=== PATIENT | female | born 1945 | race Caucasian/White ===

== ENCOUNTER 2016-12-03 23:28 | Inpatient (IN) | payer OTHER, MEDICARE ==
[~2016-12-03] VITALS: Ht 167.6 cm; Wt 74.3 kg
[~2016-12-03 23:28] MED LIST: ALIGN4 MG PO; ALLOPURINOL300 MG PO; AMBIEN5 MG PO; ASPIR-LOW81 MG PO; CIPRO500 MG PO; CYMBALTA60 MG PO; DILTIAZEM 24HR240 MG PO; GLUCOPHAGE1000 MG PO; GLUCOPHAGE500 MG PO; LIVALO1 MG PO; LOSARTAN POTASS50 MG PO; MELATONIN1 MG PO; SYNTHROID100 MCG PO; VALACYCLOVIR500 MG PO
[2016-12-03 23:53] LABS: ANION GAP 24 MEQ/L (2-14); CHLORIDE 107 mEq/L (99-109); CREATININE 3.4 mg/dL (0.6-1.3); GLUCOSE 177 mg/dL (70-99); ISTAT DEVICE 359068; POTASSIUM > 6.0 mEq/L (3.7-5.4); SODIUM 133 mEq/L (136-147); UREA NITROGEN (BUN) 65 mg/dL (9-23)
[2016-12-04 00:14] LABS: HEMATOCRIT 39.3 % (36.0-46.0); MCHC 29.5 G/DL (30.0-36.0); MCV 88.1 FL (83-99); MEAN PLAT.VOLUME 9.4 uM^3 (9.5-12.4); PLATELET COUNT 334 K/uL (156-360); RBC DIS.WIDTH-CV 17.2 % (11.8-14.6); RBC DIS.WIDTH-SD 53.8 % (39-53); RED BLOOD COUNT 4.46 M/uL (3.80-5.20); WHITE BLOOD COUNT 26.5 K/uL (4.1-10.2)
[2016-12-04 00:23] LABS: AMYLASE 72 IU/L (1-118); CHLORIDE 102 mEq/L (99-109); SODIUM 136 mEq/L (136-147)
[2016-12-04 00:25] LABS: GLUCOSE 179 mg/dL (70-99); POTASSIUM 6.9 mEq/L (3.7-5.4)
[2016-12-04 00:26] LABS: ANION GAP 27 MEQ/L (2-14); INTER. NORMALIZED RATIO 1.2; PROTHROMBIN TIME 12.3 (9.2-11.2); PTT 28.9 (25-32)
[2016-12-04 00:28] LABS: SERUM ETHYL ALCOHOL < 10 mg/dL
[2016-12-04 00:29] LABS: GFR ESTIMATE (CALCULATED) 13 mL/min/; UREA NITROGEN (BUN) 62 mg/dL (9-23)
[2016-12-04 00:30] LABS: BASE EXCESS -21.3 mEq/L (-3 to +3); BICARBONATE 8.6 mEq/L (22-26); METHEMOGLOBIN 0.6 % (0-1.5); PCO2 34 mm Hg (35-45); PO2 194 mm Hg (80-100)
[2016-12-04 00:31] LABS: COMMENTS - BLOOD GASES C+; DEVICE VENTILATOR; FI02 50 %; MECHANICAL RATE 16 resp/min; MODE A/C; PEEP 8 CM/H20; SITE LR; TIDAL VOLUME 500 ML; TOTAL RESP RATE 16 resp/min; pH 7.01 (7.35-7.45)
[2016-12-04 00:32] LABS: LIPASE 51 U/L (1.0-51.0)
[2016-12-04 00:37] LABS: TROP-I INTERPRETATION NEGATIVE; TROPONIN-I < 0.01 ng/mL (0.0-0.30)
[2016-12-04 01:18] LABS: ADD MIUA? YES; BILIRUBIN NEGATIVE; BLOOD SMALL; COLOR YELLOW ((YELLOW)); GLUCOSE (STRIP) NEGATIVE; KETONES NEGATIVE; LEUKOCYTES TRACE; NITRITE NEGATIVE; PROTEIN (STRIP) 30; SPECIFIC GRAVITY 1.008 (1.000-1.030); UROBILINOGEN 0.2 MG/DL (0.2-1.0)
[2016-12-04 01:22] LABS: AMPHETAMINE NEGATIVE (500 ng/mL); BARBITURATES NEGATIVE (200 ng/mL); BENZODIAZEPINES NEGATIVE (150 ng/mL); COCAINE NEGATIVE (150 ng/mL); INTERNAL CONTROLS VALID? YES; METHADONE NEGATIVE (200 ng/mL); METHAMPHETAMINE NEGATIVE (500 ng/mL); OPIATES (MORPHINE) NEGATIVE (100 ng/mL); OXYCODONE NEGATIVE (100 ng/mL); PHENCYCLIDINE NEGATIVE (25 ng/mL); PROPOXYPHENE NEGATIVE (300 ng/mL); THC CANNABINOIDS NEGATIVE (50 ng/mL); TRICYCLIC ANTIDEPRESSANTS NEGATIVE (300 ng/mL)
[2016-12-04 01:26] VITALS: BP 82/54
[2016-12-04 01:33] LABS: ABS NEUTROPHIL COUNT 12.5; BAND NEUTROPHILS 1.7 % (0-8.0); BASOPHILS 0.9 %; EOSINOPHIL ABS CT 0.2; EOSINOPHILS 0.9 % (0-5.0); INSTRUMENT ABS NEUTROPHIL CT 13.1 K/uL; LYMPHOCYTES 47.4 % (15.0-45.0); PLAT.SUFFICIENCY ADEQUATE; SEG.NEUTROPHILS 45.6 % (46.0-76.0); SMUDGE CELLS 5.3
[2016-12-04 01:46] LABS: RED BLOOD CELLS 0-5 /HPF (0-5); WHITE BLOOD CELLS NONE SEEN /HPF (0-5)
[2016-12-04 01:47] LABS: BACTERIA 1+ /HPF; EPITHELIAL CELLS 1+ /HPF; MUCUS NONE SEEN /LPF; UCUL ADDED? NO
[2016-12-04 02:00] VITALS: BP 100/31
[2016-12-04 02:04] LABS: BASE EXCESS -21.4 mEq/L (-3 to +3); BICARBONATE 7.8 mEq/L (22-26); CARBOXY HGB 1.3 % (0-5); COMMENTS - BLOOD GASES C+; DEVICE VENTILATOR; FI02 30 %; METHEMOGLOBIN 1.7 % (0-1.5); PCO2 29 mm Hg (35-45); PO2 95 mm Hg (80-100); SITE A-LINE
[2016-12-04 02:05] LABS: MECHANICAL RATE 16 resp/min; MODE AC; PEEP 5 CM/H20; TIDAL VOLUME 500 ML; TOTAL RESP RATE 16 resp/min; pH 7.04 (7.35-7.45)
[2016-12-04 02:30] VITALS: BP 100/31
[2016-12-04 03:00] VITALS: BP 100/31
[2016-12-04 03:08] LABS: CHLORIDE 102 mEq/L (99-109)
[2016-12-04 03:10] LABS: GLUCOSE 326 mg/dL (70-99)
[2016-12-04 03:11] LABS: ANION GAP 29 MEQ/L (2-14); POTASSIUM 3.7 mEq/L (3.7-5.4); SODIUM 143 mEq/L (136-147)
[2016-12-04 03:12] LABS: TOTAL BILIRUBIN 1.2 mg/dL (0.0-1.0)
[2016-12-04 03:13] LABS: ALKALINE PHOSPHATASE 85 IU/L (3-129)
[2016-12-04 03:14] LABS: GFR ESTIMATE (CALCULATED) 14 mL/min/
[2016-12-04 03:14] LABS: METH RESISTANT S AUREUS PCR NEGATIVE (NEGATIVE)
[2016-12-04 03:15] LABS: UREA NITROGEN (BUN) 62 mg/dL (9-23)
[2016-12-04 03:20] LABS: PROBE CHECK PASS; SPECIMEN PROCESSING CONTROL PASS
[2016-12-04 05:54] LABS: BASE EXCESS -12.2 mEq/L (-3 to +3); BICARBONATE 11.9 mEq/L (22-26); CARBOXY HGB 1.2 % (0-5); COMMENTS - BLOOD GASES C+; DEVICE VENT; FI02 30 %; MECHANICAL RATE 25 resp/min; METHEMOGLOBIN 1.4 % (0-1.5); MODE A/C; PCO2 22 mm Hg (35-45); PEEP 5 CM/H20; PO2 62 mm Hg (80-100); SITE RR ALINE; TIDAL VOLUME 500 ML; TOTAL RESP RATE 25 resp/min; pH 7.34 (7.35-7.45)
[2016-12-04 06:40] LABS: BASOPHIL COUNT 0.1 K/uL (0-0.1); EOSINOPHIL (%) 0 % (0-5); IMMATURE GRANULOCYTE (%) 1.2 % (0.0-0.7); IMMATURE GRANULOCYTE COUNT 0.3 K/uL; INSTRUMENT ABS NEUTROPHIL CT 19.7 K/uL; LYMPHOCYTE COUNT 4.4 K/uL (1.0-2.8); MCH 26.2 PG (29.0-34.0); MCHC 31.3 G/DL (30.0-36.0); MONOCYTE (%) 7.5 % (3-12); NEUTROPHIL (%) 74.6 % (45-76); NEUTROPHIL COUNT 19.7 K/uL (1.8-6.4); RBC DIS.WIDTH-SD 51.4 % (39-53); RED BLOOD COUNT 3.59 M/uL (3.80-5.20); WHITE BLOOD COUNT 26.4 K/uL (4.1-10.2)
[2016-12-04 06:43] LABS: MCV 83.6 FL (83-99)
[2016-12-04 06:55] LABS: ALKALINE PHOSPHATASE 92 IU/L (3-129); ANION GAP 31 MEQ/L (2-14); CHLORIDE 97 MEQ/L (99-109); POTASSIUM 3.6 MEQ/L (3.7-5.4); SAMPLE HEMOLYSIS CHECK 0; SAMPLE ICTERIC CHECK 0; SAMPLE LIPEMIA CHECK 0; SODIUM 139 MEQ/L (136-147); TOTAL BILIRUBIN 1.5 MG/DL (0.0-1.0); UREA NITROGEN (BUN) 57 mg/dL (9-23)
[2016-12-04 06:57] LABS: GLUCOSE 471 mg/dL (70-99)
[2016-12-04 06:58] LABS: GFR ESTIMATE (CALCULATED) 17 mL/min/
[2016-12-04 07:47] LABS: MEAN PLAT.VOLUME 10.1 uM^3 (9.5-12.4); PLAT.SUFFICIENCY ADEQUATE
[2016-12-04 08:20] LABS: PLATELET COUNT 226 K/uL (156-360)
[2016-12-04 12:12] LABS: ANION GAP 19 MEQ/L (2-14); CHLORIDE 98 MEQ/L (99-109); POTASSIUM 3.7 MEQ/L (3.7-5.4); SAMPLE HEMOLYSIS CHECK 0; SAMPLE ICTERIC CHECK 0; SAMPLE LIPEMIA CHECK 0; SODIUM 140 MEQ/L (136-147)
[2016-12-04 12:17] LABS: GFR ESTIMATE (CALCULATED) 19 mL/min/; GLUCOSE 302 mg/dL (70-99); UREA NITROGEN (BUN) 52 mg/dL (9-23)
[2016-12-04] MEDS ORDERED: DILTIAZEM 24HR360 M1 PO (18:00)
[2016-12-04] MEDS ORDERED: LOSARTAN POTAS100 MG PO (18:01)
[2016-12-04] MEDS ORDERED: PANTOPRAZOLE SO40 MG PO (18:03)
[2016-12-04] MEDS ORDERED: ZYDELIG150 MG PO (18:03)
[2016-12-04] MEDS ORDERED: ELIQUIS2.5 MG PO (18:03)
[2016-12-04] MEDS ORDERED: NITROFURANTOIN50 MG PO (18:04)
[2016-12-04] MEDS ORDERED: GLIMEPIRIDE1 MG PO (18:05)
[2016-12-04] MEDS ORDERED: LOPRESSOR50 MG PO (18:05)
[2016-12-04] MEDS ORDERED: NITROSTAT0.4 MG SL (18:05)
[2016-12-04] MEDS ORDERED: FEROSUL325 MG PO (18:06)
[2016-12-04] MEDS ORDERED: VITAMIN C500 MG PO (18:06)
[2016-12-04] MEDS ORDERED: FLONASE16 G1 BOTH NARES (18:06)
[2016-12-04] MEDS ORDERED: MYRBETRIQ50 MG PO (18:07)
[2016-12-04] MEDS ORDERED: GABAPENTIN300 MG PO (18:07)
[2016-12-04 18:33] LABS: POINT-OF-CARE METER ID UU13113731
[2016-12-04 21:00] VITALS: BP 115/34
[2016-12-04 22:00] VITALS: BP 115/34
[2016-12-05 06:00] LABS: POINT-OF-CARE METER ID UU13113731
[2016-12-05 06:26] LABS: TROP-I INTERPRETATION POSITIVE; TROPONIN-I 10.51 ng/mL (0.0-0.30)
[2016-12-05 06:31] LABS: HEMATOCRIT 25.2 % (36.0-46.0); MCHC 31.3 G/DL (30.0-36.0); MCV 82.9 FL (83-99); RBC DIS.WIDTH-CV 17.4 % (11.8-14.6); RBC DIS.WIDTH-SD 52.2 % (39-53); RED BLOOD COUNT 3.04 M/uL (3.80-5.20)
[2016-12-05 06:36] LABS: ANION GAP 11 MEQ/L (2-14); CHLORIDE 103 MEQ/L (99-109); MAGNESIUM 1.3 mg/dl (1.3-2.7); SAMPLE HEMOLYSIS CHECK 0; SAMPLE ICTERIC CHECK 0; SAMPLE LIPEMIA CHECK 0; SODIUM 142 MEQ/L (136-147); UREA NITROGEN (BUN) 44 mg/dL (9-23)
[2016-12-05 06:38] LABS: GFR ESTIMATE (CALCULATED) 29 mL/min/; GLUCOSE 144 mg/dL (70-99); POTASSIUM 2.9 MEQ/L (3.7-5.4)
[2016-12-05 06:42] LABS: WHITE BLOOD COUNT 7.8 K/uL (4.1-10.2)
[2016-12-05 07:12] LABS: EOSINOPHIL (%) 0.8 % (0-5); EOSINOPHIL COUNT 0.1 K/uL (0-0.3); IMMATURE GRANULOCYTE (%) 0.4 % (0.0-0.7); INSTRUMENT ABS NEUTROPHIL CT 5.1 K/uL; LYMPHOCYTE COUNT 2.6 K/uL (1.0-2.8); MONOCYTE (%) 0 % (3-12); NEUTROPHIL (%) 65.5 % (45-76); NEUTROPHIL COUNT 5.1 K/uL (1.8-6.4); PLAT.SUFFICIENCY DECREASED
[2016-12-05 08:00] VITALS: BP 112/39
[2016-12-05 08:12] LABS: PLATELET COUNT 104 K/uL (156-360)
[2016-12-05 11:57] LABS: POINT-OF-CARE METER ID UU13113731
[2016-12-05 13:08] LABS: POINT-OF-CARE METER ID UU14174217
[2016-12-05 14:27] LABS: HEMATOCRIT 27.5 % (36.0-46.0); MCHC 30.5 G/DL (30.0-36.0); MCV 85.1 FL (83-99); MEAN PLAT.VOLUME 10.5 uM^3 (9.5-12.4); PLATELET COUNT 92 K/uL (156-360); RBC DIS.WIDTH-CV 17.6 % (11.8-14.6); RBC DIS.WIDTH-SD 54.3 % (39-53); RED BLOOD COUNT 3.23 M/uL (3.80-5.20); WHITE BLOOD COUNT 7.8 K/uL (4.1-10.2)
[2016-12-05 18:10] LABS: POINT-OF-CARE METER ID UU14174217
[2016-12-05 21:00] VITALS: BP 160/74
[2016-12-05 23:48] LABS: HEMATOCRIT 27.8 % (36.0-46.0); MCH 26.3 PG (29.0-34.0); MCHC 31.3 G/DL (30.0-36.0); MEAN PLAT.VOLUME 10.2 uM^3 (9.5-12.4); PLATELET COUNT 97 K/uL (156-360); RBC DIS.WIDTH-CV 16.6 % (11.8-14.6); RBC DIS.WIDTH-SD 51.2 % (39-53); RED BLOOD COUNT 3.31 M/uL (3.80-5.20); WHITE BLOOD COUNT 6.4 K/uL (4.1-10.2)
[2016-12-06] VITALS (11 sets, daily range): BP systolic 141–202; BP diastolic 66–88
[2016-12-06 00:05] LABS: CHLORIDE 105 mEq/L (99-109); SODIUM 142 mEq/L (136-147)
[2016-12-06 00:06] LABS: POTASSIUM 4.4 mEq/L (3.7-5.4)
[2016-12-06 00:07] LABS: GLUCOSE 204 mg/dL (70-99)
[2016-12-06 00:08] LABS: ANION GAP 13 MEQ/L (2-14)
[2016-12-06 00:09] LABS: TROP-I INTERPRETATION POSITIVE; TROPONIN-I 3.74 ng/mL (0.0-0.30)
[2016-12-06 00:10] LABS: TOTAL BILIRUBIN 0.3 mg/dL (0.0-1.0)
[2016-12-06 00:11] LABS: ALKALINE PHOSPHATASE 81 IU/L (3-129); GFR ESTIMATE (CALCULATED) 58 mL/min/
[2016-12-06 00:12] LABS: UREA NITROGEN (BUN) 29 mg/dL (9-23)
[2016-12-06 01:27] LABS: POINT-OF-CARE METER ID UU14174217
[2016-12-06 06:44] LABS: POINT-OF-CARE METER ID UU14162636; POINT-OF-CARE USER ID RADDRS44
[2016-12-06 09:35] LABS: EOSINOPHIL (%) 0 % (0-5); HEMATOCRIT 28.9 % (36.0-46.0); IMMATURE GRANULOCYTE (%) 0.9 % (0.0-0.7); IMMATURE GRANULOCYTE COUNT 0.1 K/uL; INSTRUMENT ABS NEUTROPHIL CT 5.6 K/uL; LYMPHOCYTE COUNT 1.7 K/uL (1.0-2.8); MCH 26.1 PG (29.0-34.0); MCHC 31.5 G/DL (30.0-36.0); MEAN PLAT.VOLUME 10.5 uM^3 (9.5-12.4); MONOCYTE (%) 2.6 % (3-12); MONOCYTE COUNT 0.2 K/uL (0-0.8); NEUTROPHIL (%) 73.9 % (45-76); NEUTROPHIL COUNT 5.6 K/uL (1.8-6.4); PLATELET COUNT 101 K/uL (156-360); RBC DIS.WIDTH-CV 16.6 % (11.8-14.6); RBC DIS.WIDTH-SD 50.1 % (39-53); RED BLOOD COUNT 3.48 M/uL (3.80-5.20); WHITE BLOOD COUNT 7.6 K/uL (4.1-10.2)
[2016-12-06 09:41] LABS: TROP-I INTERPRETATION POSITIVE; TROPONIN-I 2.33 ng/mL (0.0-0.30)
[2016-12-06 09:43] LABS: ANION GAP 13 MEQ/L (2-14); CHLORIDE 103 MEQ/L (99-109); GFR ESTIMATE (CALCULATED) > 59 mL/min/; GLUCOSE 190 mg/dL (70-99); POTASSIUM 4.2 MEQ/L (3.7-5.4); SAMPLE HEMOLYSIS CHECK 0; SAMPLE ICTERIC CHECK 0; SAMPLE LIPEMIA CHECK 0; SODIUM 142 MEQ/L (136-147); UREA NITROGEN (BUN) 27 mg/dL (9-23)
[2016-12-06 14:30] LABS: POINT-OF-CARE METER ID UU13113781
[2016-12-07] VITALS (9 sets, daily range): BP systolic 138–194; BP diastolic 65–98
[2016-12-07 00:47] LABS: POINT-OF-CARE METER ID UU13113781
[2016-12-07 05:38] LABS: CHLORIDE 106 mEq/L (99-109); POTASSIUM 4.1 mEq/L (3.7-5.4); SODIUM 143 mEq/L (136-147)
[2016-12-07 05:41] LABS: GLUCOSE 212 mg/dL (70-99)
[2016-12-07 05:42] LABS: ANION GAP 12 MEQ/L (2-14)
[2016-12-07 05:44] LABS: ALKALINE PHOSPHATASE 81 IU/L (3-129); GFR ESTIMATE (CALCULATED) > 59 mL/min/
[2016-12-07 05:45] LABS: UREA NITROGEN (BUN) 26 mg/dL (9-23)
[2016-12-07 05:49] LABS: TOTAL BILIRUBIN 0.4 mg/dL (0.0-1.0)
[2016-12-07 08:32] LABS: ANION GAP 9 MEQ/L (2-14); CHLORIDE 104 MEQ/L (99-109); GFR ESTIMATE (CALCULATED) > 59 mL/min/; GLUCOSE 194 mg/dL (70-99); POTASSIUM 3.9 MEQ/L (3.7-5.4); SAMPLE HEMOLYSIS CHECK 0; SAMPLE ICTERIC CHECK 0; SAMPLE LIPEMIA CHECK 0; SODIUM 140 MEQ/L (136-147); UREA NITROGEN (BUN) 25 mg/dL (9-23)
[2016-12-07 11:57] LABS: POINT-OF-CARE USER ID NUTSLF44
[2016-12-07 17:21] LABS: POINT-OF-CARE USER ID NUTSLF44
[2016-12-08] VITALS (7 sets, daily range): BP systolic 134–195; BP diastolic 60–86
[2016-12-08 06:24] LABS: HEMATOCRIT 28.8 % (36.0-46.0); MCH 25.9 PG (29.0-34.0); MCHC 30.9 G/DL (30.0-36.0); MEAN PLAT.VOLUME 9.8 uM^3 (9.5-12.4); RBC DIS.WIDTH-CV 16.7 % (11.8-14.6); RED BLOOD COUNT 3.43 M/uL (3.80-5.20); WHITE BLOOD COUNT 9.1 K/uL (4.1-10.2)
[2016-12-08 06:35] LABS: ANION GAP 8 MEQ/L (2-14); CHLORIDE 106 MEQ/L (99-109); GFR ESTIMATE (CALCULATED) > 59 mL/min/; POTASSIUM 3.7 MEQ/L (3.7-5.4); SAMPLE HEMOLYSIS CHECK 0; SAMPLE ICTERIC CHECK 0; SAMPLE LIPEMIA CHECK 0; SODIUM 142 MEQ/L (136-147); UREA NITROGEN (BUN) 25 mg/dL (9-23)
[2016-12-08 06:38] LABS: GLUCOSE 109 mg/dL (70-99)
[2016-12-08 06:46] LABS: PLATELET COUNT 151 K/uL (156-360)
[2016-12-08] MEDS ORDERED: NEURONTIN100 MG PO (11:35)
[2016-12-08] MEDS ORDERED: GLUCOPHAGE500 MG PO (11:37)
[2016-12-08] MEDS ORDERED: VITAMIN D32000 UNI1 PO (11:38)
[2016-12-08 14:26] LABS: POINT-OF-CARE METER ID UU13113696
[2016-12-09 03:37] VITALS: BP 158/70
[2016-12-09 06:47] LABS: HEMATOCRIT 31.2 % (36.0-46.0); MCH 25.5 PG (29.0-34.0); MCHC 29.8 G/DL (30.0-36.0); MCV 85.7 FL (83-99); MEAN PLAT.VOLUME 9.7 uM^3 (9.5-12.4); PLATELET COUNT 139 K/uL (156-360); RBC DIS.WIDTH-CV 16.7 % (11.8-14.6); RBC DIS.WIDTH-SD 52.6 % (39-53); RED BLOOD COUNT 3.64 M/uL (3.80-5.20); WHITE BLOOD COUNT 8.3 K/uL (4.1-10.2)
[2016-12-09 07:17] LABS: ANION GAP 7 MEQ/L (2-14); CHLORIDE 109 MEQ/L (99-109); GFR ESTIMATE (CALCULATED) > 59 mL/min/; GLUCOSE 103 mg/dL (70-99); POTASSIUM 3.7 MEQ/L (3.7-5.4); SAMPLE HEMOLYSIS CHECK 0; SAMPLE ICTERIC CHECK 0; SAMPLE LIPEMIA CHECK 0; SODIUM 144 MEQ/L (136-147); UREA NITROGEN (BUN) 16 mg/dL (9-23)
[2016-12-09 07:30] VITALS: BP 162/71
[2016-12-09] MEDS ORDERED: ELIQUIS5 MG PO (10:55)
[2016-12-09] MEDS ORDERED: APRESOLINE25 MG PO (10:55)
[2016-12-09] MEDS ORDERED: ATORVASTATIN CA40 MG PO (10:55)
[2016-12-09] MEDS ORDERED: AMLODIPINE BESY10 MG PO (10:55)
[2016-12-09 11:07] VITALS: BP 114/55
[2016-12-09 11:19] LABS: POINT-OF-CARE METER ID UU14174216
[2016-12-09] MEDS ORDERED: ONDANSETRON4 MG/2 ML IV (17:08)
[2016-12-09] MEDS ORDERED: LOVENOX40 MG/0.4 SC (17:11)
[2016-12-09] MEDS ORDERED: LEVEMIR100 UNIT/2 SC (17:12)
[2016-12-09] MEDS ORDERED: ZOLOFT25 MG PO (17:13)
[2016-12-09] MEDS ORDERED: NOVOLOG PE100 UNITS/ SC (17:14)
[2016-12-09] MEDS ORDERED: CEPACOL SORE T1 EAC9 MM (17:20)
[2016-12-09] MEDS ORDERED: AYR BABY SALINE30 ML BOTH NARES (17:22)
[2016-12-09] MEDS ORDERED: ACETAMINOPHEN325 M1 PO (17:28)
== END 2016-12-09 13:45 | DRG 228 ==
LOC: EME 23:28 → CATH 12-04 01:04 → EME 12-04 01:04 → 4EAST 12-04 01:33 → 4WEST 12-04 01:33 → 4EAST 12-06 13:55
PROVIDERS: Emergency Medicine; Family Medicine; Hospitalist; Internal Medicine; Internal Medicine Critical Care Medicine; Nurse Practitioner Family; Physician Assistant Medical
PROC: 02HK3NZ Insertion of Intracardiac Pacemaker into Right Ventricle, Percutaneous Approach (ICD-10-PCS; principal; 2016-12-04)
PROC: 5A1223Z Performance of Cardiac Pacing, Continuous (ICD-10-PCS; 2016-12-04)
PROC: 0BH17EZ Insertion of Endotracheal Airway into Trachea, Via Natural or Artificial Opening (ICD-10-PCS; 2016-12-04)
PROC: 03HY32Z Insertion of Monitoring Device into Upper Artery, Percutaneous Approach (ICD-10-PCS; 2016-12-04)
PROC: 5A1945Z Respiratory Ventilation, 24-96 Consecutive Hours (ICD-10-PCS; 2016-12-04)
PROC: B2111ZZ Fluoroscopy of Multiple Coronary Arteries using Low Osmolar Contrast (ICD-10-PCS; 2016-12-08)
PROC: 4A023N7 Measurement of Cardiac Sampling and Pressure, Left Heart, Percutaneous Approach (ICD-10-PCS; 2016-12-08)
DX: R57.0 Cardiogenic shock (principal); I44.2 Atrioventricular block, complete; T44.7X5A Adverse effect of beta-adrenoreceptor antagonists, initial encounter; T46.1X5A Adverse effect of calcium-channel blockers, initial encounter; J96.00 Acute respiratory failure, unspecified whether with hypoxia or hypercapnia; N17.9 Acute kidney failure, unspecified; E87.2 Acidosis; C91.10 Chronic lymphocytic leukemia of B-cell type not having achieved remission; N39.0 Urinary tract infection, site not specified; I21.4 Non-ST elevation (NSTEMI) myocardial infarction; K72.00 Acute and subacute hepatic failure without coma; G93.1 Anoxic brain damage, not elsewhere classified; F33.9 Major depressive disorder, recurrent, unspecified; E87.5 Hyperkalemia; I48.0 Paroxysmal atrial fibrillation; E11.65 Type 2 diabetes mellitus with hyperglycemia; I25.10 Atherosclerotic heart disease of native coronary artery without angina pectoris; I10 Essential (primary) hypertension; E78.5 Hyperlipidemia, unspecified; Z95.5 Presence of coronary angioplasty implant and graft; Z79.01 Long term (current) use of anticoagulants; Z79.4 Long term (current) use of insulin; Z88.0 Allergy status to penicillin; Z85.72 Personal history of non-Hodgkin lymphomas; D64.9 Anemia, unspecified; D69.6 Thrombocytopenia, unspecified; E87.6 Hypokalemia; E83.51 Hypocalcemia; K21.9 Gastro-esophageal reflux disease without esophagitis; E03.9 Hypothyroidism, unspecified
CPT/HCPCS: 36600; 70450; 71010; 80047; 80048; 80048 91; 80053; 81003; 82150; 82803; 82948; 83605; 83690; 83735; 84100; 84443; 84484; 84999; 85025; 85025 91; 85027; 85610; 85730; 86850; 86900; 86901; 87040; 87070; 87077; 87086; 87186; 87205; 87641; 93005; 93306; 94002; 94003; 94640; 94799; 97530 GO; 99281; 99285; C1769; C1887; C1894; C1898; G0480; J0171; J0360; J0461; J0610; J0696; J1100; J1265; J1644; J1815; J1940; J2250; J2405; J2543; J3010; J3370; J3480; J7030; J7040; J7050; J7070; J7120; S0028

== ENCOUNTER 2016-12-09 12:21 | Inpatient (IN) | payer OTHER, MEDICARE ==
[~2016-12-09] VITALS: Ht 160 cm; Wt 75.3 kg
[~2016-12-09 12:21] MED LIST changes: +AMLODIPINE BESY10 MG PO; +APRESOLINE25 MG PO; +ATORVASTATIN CA40 MG PO; +DILTIAZEM 24HR360 M1 PO; +ELIQUIS2.5 MG PO; +ELIQUIS5 MG PO; +FEROSUL325 MG PO; +FLONASE16 G1 BOTH NARES; +GABAPENTIN300 MG PO; +GLIMEPIRIDE1 MG PO; +LOPRESSOR50 MG PO; +LOSARTAN POTAS100 MG PO; +MYRBETRIQ50 MG PO; +NEURONTIN100 MG PO; +NITROFURANTOIN50 MG PO; +NITROSTAT0.4 MG SL; +PANTOPRAZOLE SO40 MG PO; +VITAMIN C500 MG PO; +VITAMIN D32000 UNI1 PO; +ZYDELIG150 MG PO
[2016-12-09 14:02] VITALS: BP 129/59
[2016-12-09 16:13] LABS: POINT-OF-CARE METER ID UU14174215
[2016-12-09] MEDS ORDERED: ONDANSETRON4 MG/2 ML IV (17:08)
[2016-12-09] MEDS ORDERED: LOVENOX40 MG/0.4 SC (17:11)
[2016-12-09] MEDS ORDERED: LEVEMIR100 UNIT/2 SC (17:12)
[2016-12-09] MEDS ORDERED: ZOLOFT25 MG PO (17:13)
[2016-12-09] MEDS ORDERED: NOVOLOG PE100 UNITS/ SC (17:14)
[2016-12-09] MEDS ORDERED: CEPACOL SORE T1 EAC9 MM (17:20)
[2016-12-09] MEDS ORDERED: AYR BABY SALINE30 ML BOTH NARES (17:22)
[2016-12-09] MEDS ORDERED: ACETAMINOPHEN325 M1 PO (17:28)
[2016-12-09 21:33] LABS: POINT-OF-CARE METER ID UU14174215
[2016-12-09 23:45] VITALS: BP 150/66
[2016-12-10 05:18] LABS: MCH 25.8 PG (29.0-34.0); MCHC 30.6 G/DL (30.0-36.0); MCV 84.2 FL (83-99); MEAN PLAT.VOLUME 9.5 uM^3 (9.5-12.4); PLATELET COUNT 140 K/uL (156-360); RBC DIS.WIDTH-CV 16.6 % (11.8-14.6); RBC DIS.WIDTH-SD 50.7 % (39-53); RED BLOOD COUNT 3.68 M/uL (3.80-5.20); WHITE BLOOD COUNT 8.9 K/uL (4.1-10.2)
[2016-12-10 05:41] LABS: ALKALINE PHOSPHATASE 60 IU/L (3-129); ANION GAP 8 MEQ/L (2-14); CHLORIDE 109 MEQ/L (99-109); GFR ESTIMATE (CALCULATED) > 59 mL/min/; GLUCOSE 79 mg/dL (70-99); POTASSIUM 3.4 MEQ/L (3.7-5.4); SAMPLE HEMOLYSIS CHECK 0; SAMPLE ICTERIC CHECK 0; SAMPLE LIPEMIA CHECK 0; SODIUM 142 MEQ/L (136-147); TOTAL BILIRUBIN 0.4 MG/DL (0.0-1.0); UREA NITROGEN (BUN) 12 mg/dL (9-23)
[2016-12-10 06:10] VITALS: BP 156/78
[2016-12-10 06:52] LABS: POINT-OF-CARE METER ID UU14174215; POINT-OF-CARE USER ID ENVGAF
[2016-12-10 11:55] LABS: POINT-OF-CARE METER ID UU14174215; POINT-OF-CARE USER ID ENVGAF
[2016-12-10 15:06] VITALS: BP 121/57
[2016-12-10 16:23] LABS: POINT-OF-CARE METER ID UU14174215
[2016-12-10 21:29] LABS: POINT-OF-CARE METER ID UU14174215
[2016-12-11 05:42] VITALS: BP 164/70
[2016-12-11 06:42] LABS: POINT-OF-CARE METER ID UU14174215; POINT-OF-CARE USER ID ENVGAF
[2016-12-11 11:51] LABS: POINT-OF-CARE METER ID UU14174215
[2016-12-11 15:33] VITALS: BP 143/67
[2016-12-11 16:10] LABS: POINT-OF-CARE METER ID UU14174215
[2016-12-11 21:09] LABS: POINT-OF-CARE METER ID UU14174215
[2016-12-12 05:40] VITALS: BP 149/65
[2016-12-12 06:21] LABS: ANION GAP 8 MEQ/L (2-14); CHLORIDE 108 MEQ/L (99-109); GFR ESTIMATE (CALCULATED) > 59 mL/min/; SAMPLE HEMOLYSIS CHECK 0; SAMPLE ICTERIC CHECK 0; SAMPLE LIPEMIA CHECK 0; SODIUM 141 MEQ/L (136-147); UREA NITROGEN (BUN) 11 mg/dL (9-23)
[2016-12-12 06:39] LABS: HEMATOCRIT 32.7 % (36.0-46.0); MCHC 30.6 G/DL (30.0-36.0); MCV 85.2 FL (83-99); MEAN PLAT.VOLUME 9.8 uM^3 (9.5-12.4); RBC DIS.WIDTH-CV 17.7 % (11.8-14.6); RBC DIS.WIDTH-SD 52.7 % (39-53); RED BLOOD COUNT 3.84 M/uL (3.80-5.20)
[2016-12-12 06:41] LABS: GLUCOSE 135 mg/dL (70-99); POTASSIUM 4.1 MEQ/L (3.7-5.4)
[2016-12-12 06:43] LABS: PLATELET COUNT 201 K/uL (156-360); WHITE BLOOD COUNT 12.8 K/uL (4.1-10.2)
[2016-12-12 07:23] LABS: POINT-OF-CARE METER ID UU14174215
[2016-12-12 11:48] LABS: POINT-OF-CARE METER ID UU13113720
[2016-12-12 14:40] VITALS: BP 152/65
[2016-12-12 17:10] LABS: POINT-OF-CARE METER ID UU13113720
[2016-12-12 21:41] LABS: POINT-OF-CARE METER ID UU14174215
[2016-12-13 04:48] VITALS: BP 162/69
[2016-12-13 07:13] LABS: POINT-OF-CARE METER ID UU13113720
[2016-12-13 11:18] LABS: POINT-OF-CARE METER ID UU14174215
[2016-12-13 15:30] VITALS: BP 130/60
[2016-12-13 16:29] LABS: POINT-OF-CARE METER ID UU14174215
[2016-12-13 21:40] LABS: POINT-OF-CARE METER ID UU13113720
[2016-12-14 05:40] VITALS: BP 144/65
[2016-12-14 06:50] LABS: POINT-OF-CARE METER ID UU14174215; POINT-OF-CARE USER ID ENVGAF
[2016-12-14] MEDS ORDERED: VITAMIN D32000 UNI1 PO (09:24)
[2016-12-14] MEDS ORDERED: PANTOPRAZOLE SO40 MG PO (09:26)
[2016-12-14] MEDS ORDERED: ZOLOFT25 MG PO (09:26)
[2016-12-14] MEDS ORDERED: ELIQUIS5 MG PO (09:26)
[2016-12-14] MEDS ORDERED: THERAGRAN1 TABLET PO (09:26)
[2016-12-14] MEDS ORDERED: AMLODIPINE BESY10 MG PO (09:26)
[2016-12-14] MEDS ORDERED: FLONASE16 G1 BOTH NARES (09:26)
[2016-12-14] MEDS ORDERED: APRESOLINE25 MG PO (09:26)
[2016-12-14] MEDS ORDERED: GABAPENTIN100 MG PO (09:26)
[2016-12-14] MEDS ORDERED: ASPIR-LOW81 MG PO (09:26)
[2016-12-14] MEDS ORDERED: NITROSTAT0.4 MG SL (09:26)
[2016-12-14] MEDS ORDERED: CYMBALTA60 MG PO (09:26)
[2016-12-14] MEDS ORDERED: GLIPIZIDE5 MG PO (09:26)
[2016-12-14] MEDS ORDERED: SYNTHROID100 MCG PO (09:26)
[2016-12-14] MEDS ORDERED: LOSARTAN POTAS100 MG PO (09:26)
[2016-12-14] MEDS ORDERED: ATORVASTATIN CA40 MG PO (09:26)
[2016-12-14] MEDS ORDERED: FEROSUL325 MG PO (09:26)
[2016-12-14 10:56] LABS: HEMATOCRIT 32.6 % (36.0-46.0); MCH 25.7 PG (29.0-34.0); MCHC 29.8 G/DL (30.0-36.0); MCV 86.2 FL (83-99); MEAN PLAT.VOLUME 9.8 uM^3 (9.5-12.4); PLATELET COUNT 223 K/uL (156-360); RBC DIS.WIDTH-CV 18.1 % (11.8-14.6); RBC DIS.WIDTH-SD 56.2 % (39-53); RED BLOOD COUNT 3.78 M/uL (3.80-5.20); WHITE BLOOD COUNT 12.2 K/uL (4.1-10.2)
[2016-12-14 11:09] LABS: ANION GAP 8 MEQ/L (2-14); CHLORIDE 109 MEQ/L (99-109); GFR ESTIMATE (CALCULATED) 58 mL/min/; POTASSIUM 4.4 MEQ/L (3.7-5.4); SAMPLE HEMOLYSIS CHECK 0; SAMPLE ICTERIC CHECK 0; SAMPLE LIPEMIA CHECK 0; SODIUM 141 MEQ/L (136-147); UREA NITROGEN (BUN) 14 mg/dL (9-23)
[2016-12-14 11:11] LABS: GLUCOSE 239 mg/dL (70-99)
== END 2016-12-14 12:48 | DRG 945 ==
LOC: 3WEST 12:21
PROVIDERS: Physical Medicine & Rehabilitation Pain Medicine
PROC: F07M0ZZ Range of Motion and Joint Mobility Treatment of Musculoskeletal System - Whole Body (ICD-10-PCS; principal; 2016-12-09)
DX: R53.1 Weakness (principal); I21.4 Non-ST elevation (NSTEMI) myocardial infarction; R26.2 Difficulty in walking, not elsewhere classified; R41.0 Disorientation, unspecified; G93.1 Anoxic brain damage, not elsewhere classified; I44.2 Atrioventricular block, complete; N17.9 Acute kidney failure, unspecified; C91.10 Chronic lymphocytic leukemia of B-cell type not having achieved remission; Z74.09 Other reduced mobility; R00.1 Bradycardia, unspecified; I48.91 Unspecified atrial fibrillation; D64.9 Anemia, unspecified; E03.9 Hypothyroidism, unspecified; E11.9 Type 2 diabetes mellitus without complications; I10 Essential (primary) hypertension; F32.9 Major depressive disorder, single episode, unspecified; I25.10 Atherosclerotic heart disease of native coronary artery without angina pectoris; Z95.5 Presence of coronary angioplasty implant and graft; E87.5 Hyperkalemia; E87.6 Hypokalemia; D69.6 Thrombocytopenia, unspecified; D72.829 Elevated white blood cell count, unspecified; Z87.440 Personal history of urinary (tract) infections; Z79.4 Long term (current) use of insulin; Z79.01 Long term (current) use of anticoagulants; Z79.82 Long term (current) use of aspirin; Z79.899 Other long term (current) drug therapy
CPT/HCPCS: 80048; 80053; 82948; 85027; 92523 GN; 97110 GO; 97530 GP; 97532 GN